=== PATIENT | female | born 1995 | race Caucasian/White ===

== ENCOUNTER 2019-10-14 10:44 | Observation (INO) | payer OTHER ==
--- NOTE | 2019-10-14 12:29 | XRAY ---
Indication: growth. 2-dimensional OB ultrasound performed. Comparison: September 06, 2019. Again there is a single viable intrauterine in cephalic presentation. heart rate 14 BPM. Visualized stomach and bladder appear unremarkable. Again posterior placenta without abruption/previa. BPD measures 9.06 cm corresponding to 36 weeks 5 days. HC measures 32.40 cm corresponding to 36 weeks 5 days. AC measures 30.62 cm corresponding to 34 weeks 4 days. FL measures 6.90 cm corresponding to 35 weeks 3 days. Estimated weight 5 lbs. 13 oz., +/-14 ounces. Approximately 54 percentile. VEDA is 14.9 cm. Impression: Again single viable intrauterine with mean gestational age 35 weeks 6 days. There has been progression of with fetus now measuring 6 days larger, previously 9 days larger. No new/acute findings.
[2019-10-14 14:15] VITALS: BP 103/60; PULSE 83; O2SAT 96
== END 2019-10-14 12:44 | disposition home or self-care (01) ==
LOC: OB 10:44
PROVIDERS: ADMIT Family Medicine; ATTEND Family Medicine
DX: Z34.83 Encounter for supervision of other normal pregnancy, third trimester (principal)
CPT/HCPCS: 59025; 76816; G0378

== ENCOUNTER 2019-11-03 12:40 | Observation (INO) | payer OTHER ==
--- NOTE | 2019-11-03 13:51 | XRAY ---
Indication: Decreased movement. Ultrasound biophysical profile study was performed. Comparison: None Single intrauterine currently in cephalic presentation with heart rate 135 BPM. Four-quadrant VEDA is 18.8 cm. 2 points given for breathing, movements, tone, and qualitative amniotic fluid volume. Impression: Total biophysical profile score is 8 out of 8.
== END 2019-11-03 14:35 | disposition home or self-care (01) ==
LOC: OB 12:40
PROVIDERS: ADMIT Family Medicine; ATTEND Family Medicine
DX: Z34.83 Encounter for supervision of other normal pregnancy, third trimester (principal)
CPT/HCPCS: 59025; 76819; G0378

== ENCOUNTER 2019-11-08 14:16 | Inpatient (IN) | payer OTHER ==
[2019-11-08] MEDS ORDERED: XYLOCAINE 1% HCL 20 ML MDV IJ PRN (14:27)
[2019-11-08] MEDS ORDERED: PITOCIN 30 UNITS/ LR 500 ML 30 UNITS/500 ML IV.SOLN. IV SCH (14:30)
[2019-11-08] MEDS ORDERED: Sodium Chloride 100ML MINI-BAG PLUS 100 ML IV ONE ×3 (14:40→22:17)
[2019-11-08] MEDS ORDERED: OMNIPEN 2 GM*** 2 G in Sodium Chloride 100ML MINI-BAG PLUS 100 ML IV ONE (15:00)
[2019-11-08] MEDS: Lactated Ringers 1,000 ML IV SCH ×2 (15:22→19:21)
[2019-11-08 15:33] LABS: Absolute Neutrophil Ct (ANC) 9.09 (1.4-6.9); BASOPHIL % 0.1 % (0.0-0.4); Basophil (Absolute #) 0.01 (0-0.4); Eosinophil (Absolute #) 0.12 (0-0.5); Hematocrit 39.5 % (35-47); Hemoglobin 13.1 gm/dl (12.0-16.0); Lymphocyte (Absolute #) 2.35 (1.0-4.6); Lymphocytes % 19.2 % (24.0-44.0); Mean Cell Volume 93.4 fl (78-100); Mean Corpuscular Hgb Concent. 33.2 g/dl (32-36); Mean Platelet Volume 10.9 fl (7.5-11.0); Monocyte (Absolute #) 0.66 (0.0-1.3); Monocytes % 5.4 % (0.0-12.0); Neutrophil % 74.3 % (36.0-66.0); Platelet Count 190 K/mm3 (150-450); Red Blood Count 4.23 M/mm3 (4.1-5.4); Red Cell Distribution Width 13.8 % (11.5-14.0); White Blood Count 12.2 K/mm3 (4.0-10.5)
[2019-11-08 16:34] LABS: Amphetamine,Urine NEGATIVE (NEGATIVE); Barbiturate,Urine NEGATIVE (NEGATIVE); Benzodiazepine,Urine NEGATIVE (NEGATIVE); Cocaine,Urine NEGATIVE (NEGATIVE); Methadone,Urine NEGATIVE (NEGATIVE); Opiate,Urine NEGATIVE (NEGATIVE); PCP,Urine NEGATIVE (NEGATIVE); THC,Urine NEGATIVE (NEGATIVE)
[2019-11-08] MEDS ORDERED: Lactated Ringers 1,000 ML IV ONE (16:58)
[2019-11-08] MEDS ORDERED: OB EPIDURAL NAROPIN/SUFENTANIL IN NACL EPIDURAL PRN (16:58)
[2019-11-08] MEDS ORDERED: Ephedrine Sulfate 50 MG/ML IV PRN (16:58)
[2019-11-08] MEDS ORDERED: SUBLIMAZE 100 MCG/2 ML ONE (17:39)
[2019-11-08] MEDS ORDERED: SUBLIMAZE 100 MCG/2 ML IV ONE (18:00)
[2019-11-08] MEDS ORDERED: OMNIPEN 1 GM ONE ×2 (18:58→22:17)
[2019-11-08] MEDS: OMNIPEN 1 GM*** 1 GM in Sodium Chloride 100ML MINI-BAG PLUS 100 ML IV SCH ×2 (19:21→23:10)
[2019-11-08] MEDS ORDERED: XYLOCAINE 2%/Epi 1:200000 20ML VIAL MPF ONE (23:41)
[2019-11-09] MEDS ORDERED: LANSINOH 40 GM TOP PRN (01:11)
[2019-11-09] MEDS ORDERED: Mylicon 80MG PO PRN (01:11)
[2019-11-09] MEDS ORDERED: TUCKS TP PRN (01:11)
[2019-11-09] MEDS ORDERED: Dermoplast Spray TP PRN (01:11)
[2019-11-09] MEDS ORDERED: NORCO 5/325 MG PO PRN (01:11)
[2019-11-09] MEDS ORDERED: CORTISONE 1% CREAM TP PRN (01:11)
[2019-11-09] MEDS: Lactated Ringers 1,000 ML IV SCH ×2 (04:54→10:33)
[2019-11-09] MEDS: MOTRIN 400 MG PO PRN (08:07)
[2019-11-09] MEDS ORDERED: SOD CITRATE-CITRIC ACID SOLN PO ONE (08:14)
[2019-11-09] MEDS ORDERED: Pepcid 20 MG VIAL IV SCH (08:15)
[2019-11-09] MEDS ORDERED: Reglan 10 MG/2 ML IV SCH (08:15)
[2019-11-09 08:34] LABS: Absolute Neutrophil Ct (ANC) 10.79 (1.4-6.9); BASOPHIL % 0.1 % (0.0-0.4); Basophil (Absolute #) 0.01 (0-0.4); Eosinophil % 0.1 % (0.00-5.0); Eosinophil (Absolute #) 0.02 (0-0.5); Hematocrit 33.8 % (35-47); Hemoglobin 11.2 gm/dl (12.0-16.0); Lymphocyte (Absolute #) 2.24 (1.0-4.6); Lymphocytes % 16.4 % (24.0-44.0); Mean Cell Volume 94.7 fl (78-100); Mean Corpuscular Hemoglobin 31.4 pg (26-32); Mean Corpuscular Hgb Concent. 33.1 g/dl (32-36); Mean Platelet Volume 10.9 fl (7.5-11.0); Monocytes % 4.4 % (0.0-12.0); Platelet Count 172 K/mm3 (150-450); Red Blood Count 3.57 M/mm3 (4.1-5.4); Red Cell Distribution Width 13.4 % (11.5-14.0); White Blood Count 13.7 K/mm3 (4.0-10.5)
[2019-11-09] MEDS ORDERED: SUBLIMAZE 100 MCG/2 ML ONE (08:35)
[2019-11-09] MEDS ORDERED: Astramorph-Pf 5 MG/10 ML ONE (08:48)
[2019-11-09] MEDS ORDERED: Sensorcaine 0.25% 10 ML ONE (09:10)
[2019-11-09] MEDS ORDERED: Lactated Ringers 1,000 ML IV ONE (09:10)
[2019-11-09] MEDS ORDERED: Zofran 4 MG/2 ML VIAL ONE (09:39)
--- NOTE | 2019-11-09 10:40 | OP ---
SURGERY DATE/TIME: 11/09/2019 0802 PREOPERATIVE DIAGNOSES: 1) Desires permanent sterilization. 2) Multigravity. POSTOPERATIVE DIAGNOSES: 1) Desires permanent sterilization. 2) Multigravity. PROCEDURES: bilateral tubal ligation. SURGEON: Galo Medina M.D. ANESTHESIA: Spinal by Maurice Nicolas CRNA. ESTIMATED BLOOD LOSS: Minimal. SPECIMENS: Bilateral fallopian tube segments. INDICATIONS: After informed, written consent which included the risk of bleeding, infection and damage to surrounding structures. I also counseled her on the accepted failure rate of 1:300. The patient voiced understanding of these instructions. She elected to proceed DESCRIPTION OF PROCEDURE: She was taken to the OR where she underwent spinal anesthesia and was prepped and draped in usual sterile fashion after a Wise was placed. 0.25% Marcaine was used to infiltrate the area of infraumbilical incision and a horizontal incision was made by knife and carried down through the subcutaneous fat with scissors to the level of the fascia which was grasped by clamps and carefully excised and opened extending in horizontal. First, the right fallopian tube was identified and grasped with [place] and carried down to the fimbrial end to verify structure. Cautery was then used to make a window in the mesosalpinx and the proximal and distal tube segments were ligated with chromic tie and the interceding tube segment was then dissected free. The free end of the tube was cauterized with electrocautery. There were no complications. The fallopian tube segment was handed off for pathology specimen. The exact same protocol was followed on the left side with no complications. The fascia was closed with 0 Vicryl in running fashion with good closure and good hemostasis achieved. The subcutaneous fat was closed with 2-0 Vicryl interrupted suture x2 to close the space. Finally the skin layer was closed with 4-0 undyed Vicryl in running subcuticular fashion. Steri-Strips and occlusive dressing were placed over the incision and the patient was transferred to recovery in good condition.
[2019-11-09 11:06] LABS: Appearance CLEAR (CLEAR); Bilirubin NEGATIVE (NEGATIVE); Blood LARGE Ery/ul (0-5); Epithelial Cells RARE /HPF (FEW); Glucose NEGATIVE (NEGATIVE); Ketones NEGATIVE (NEGATIVE); Leukocyte Esterase NEGATIVE (NEGATIVE); Mucus SLIGHT /HPF (NEGATIVE); Nitrite NEGATIVE (NEGATIVE); Protein,Urine Dip NEGATIVE (Negative); Specific Gravity 1.009 (1.005-1.025); Urobilinogen NEGATIVE mg/dL (0-1)
[2019-11-09 11:19] LABS: Bacteria NONE SEEN /HPF (NEGATIVE); RBC >101 /HPF (0-2)
[2019-11-09] MEDS ORDERED: Zofran 4 MG/2 ML VIAL IV PRN (16:49)
[2019-11-09] MEDS ORDERED: HOLD NARCOTIC ANALGESICS AND SEDATIVES X24 HR MC PRN (16:51)
[2019-11-09] MEDS ORDERED: Narcan 0.4 MG/ML IV PRN (16:51)
[2019-11-09] MEDS ORDERED: PERCOCET TABLET 5/325MG PO PRN (16:51)
[2019-11-09] MEDS ORDERED: DEMEROL 50 MG IV PRN (16:51)
[2019-11-09] MEDS ORDERED: Nubain 10 MG/ML IV PRN (16:51)
[2019-11-09] MEDS ORDERED: CLARITIN 10 MG PO PRN (16:51)
[2019-11-09] MEDS ORDERED: Sodium Chloride 0.9% 10 ML FLUSH Syringe IJ PRN (16:51)
[2019-11-09] MEDS ORDERED: BENADRYL 50 MG/ML IV PRN (16:51)
[2019-11-09] MEDS ORDERED: MORPHINE SULFATE 2 MG INJ IV PRN (16:51)
[2019-11-09] MEDS: FERREX 150 PO SCH (17:13)
[2019-11-09] MEDS: Colace 100 MG PO SCH ×2 (17:13→22:57)
[2019-11-09] MEDS: TYLENOL EXTRA STRENGTH 500 MG PO PRN (18:33)
[2019-11-10] MEDS: TYLENOL EXTRA STRENGTH 500 MG PO PRN ×2 (00:34→07:05)
--- NOTE | 2019-11-10 08:43 | PCM.DS ---
Discharge Summary Date of Admission: 11/08/19 16:55 Admitting Physician: NANI BOWERS Consults: Consults on Case 11/09/19 08:14 Notify Anesthesia Provider ROUTINE 11/09/19 16:52 Notify Anesthesia Provider PRN Primary Care Provider: NANI BOWERS Allergies Allergies Sulfa (Sulfonamide Antibiotics) Adverse Reaction (Unknown, Verified 11/08/19 17:34) Pt states her mother almost twice from Sulfa so she does not want to take a chance Hospital Summary - Hospital Course Hospital Course: patient had by Dr Bowers on 11/07, no complications. had tubal on 11/08 with no complications. she is tolerating po, has mild lochia and ambulatory POD #1 and requesting to be discharged to home today. pain is controlled - Vitals & Intake/Output Vital Signs: Vital Signs Temperature 97.8 F 11/09/19 21:15 Pulse Rate 70 11/10/19 02:30 Respiratory Rate 20 11/10/19 02:30 Blood Pressure 98/62 11/10/19 02:30 O2 Sat by Pulse Oximetry 98 11/09/19 14:00 Intake & Output: Intake & Output 11/07/19 11/08/19 11/09/19 11/10/19 11:59 11:59 11:59 11:59 Intake Total 4465 1780 Output Total 700 350 Balance 3765 1430 Weight 90.718 kg - Lab Result Diagrams: 11/09/19 08:20 Lab Results-Last 24 Hrs: Lab Results-Last 24 Hours 11/09/19 Range/Units 09:03 Urine Color YELLOW (YELLOW) Urine Appearance CLEAR (CLEAR) Urine pH 7.0 (5-6) Ur Specific [place] 1.009 (1.005-1.025) Urine Protein NEGATIVE (Negative) Urine Ketones NEGATIVE (NEGATIVE) Urine Blood LARGE (0-5) [place]/ul Urine Nitrite NEGATIVE (NEGATIVE) Urine Bilirubin NEGATIVE (NEGATIVE) Urine Urobilinogen NEGATIVE (0-1) mg/dL Ur Leukocyte Esterase NEGATIVE (NEGATIVE) Urine WBC (Auto) 6-10 (0-5) /HPF Urine RBC (Auto) >101 (0-2) /HPF U Epithel Cells (Auto) RARE (FEW) /HPF Urine Bacteria (Auto) NONE SEEN (NEGATIVE) /HPF Uric Acid Cryst (Auto) 2-5 (NEGATIVE) /HPF Urine Mucus (Auto) SLIGHT (NEGATIVE) /HPF Urine Glucose NEGATIVE (NEGATIVE) mg/dL Discharge Exam General Appearance: no apparent distress, alert Respiratory Exam: normal breath sounds, lungs clear, No respiratory distress Cardiovascular Exam: regular rate/rhythm, normal heart sounds Gastrointestinal/Abdomen Exam: soft, other (infraumbilical incision c/d/i), No tenderness, No mass Extremity Exam: normal inspection, normal range of motion Final Diagnosis/Problem List - Final Discharge Diagnosis/Problem (1) Vaginal delivery Current Visit: Yes Status: Acute Code(s): O80 - ENCOUNTER FOR FULL-TERM UNCOMPLICATED DELIVERY (2) Encounter for tubal ligation Current Visit: Yes Status: Acute Code(s): Z30.2 - ENCOUNTER FOR STERILIZATION - Discharge Disposition: Home, Self-Care Condition: Stable Prescriptions: New Hydrocodone/APAP 5-325 Tab^^^ [[place] 5-325 Tablet^^^] 1 tab PO Q6HPRN PRN #28 tablet MDD 6 PRN Reason: Pain Continue Vits W-Ca,Fe,FA(<1Mg) [] 1 each PO DAILY Follow up with: NANI BOWERS [Primary Care Provider] - 1 Week
[2019-11-10] MEDS: FERREX 150 PO SCH (09:16)
[2019-11-10] MEDS: Colace 100 MG PO SCH (09:17)
[2019-11-10] MEDS: MOTRIN 400 MG PO PRN (09:17)
[2019-11-10 14:11] VITALS: O2SAT 99
[2019-11-10 14:21] VITALS: BP 103/60; PULSE 72
[2019-11-10] MEDS ORDERED: NORCO 5/325 MG PO PRN (17:00)
== END 2019-11-10 14:19 | disposition home or self-care (01) | DRG 798 ==
LOC: OB 14:16 → OBSVTOIN 16:55 → OB 16:55
PROVIDERS: ADMIT Family Medicine; ATTEND Family Medicine
PROC: 10E0XZZ Delivery of Products of Conception, External Approach (ICD-10-PCS; principal; 2019-11-09)
PROC: 0U570ZZ Destruction of Bilateral Fallopian Tubes, Open Approach (ICD-10-PCS; 2019-11-09)
DX: O71.4 Obstetric high vaginal laceration alone (principal); Z37.0 Single live birth; O69.81X0 Labor and delivery complicated by cord around neck, without compression, not applicable or unspecified; Z3A.39 39 weeks gestation of pregnancy; Z30.2 Encounter for sterilization
CPT/HCPCS: 36415; 80307; 81001; 85025; 87086; 88302; 94799; G0378; J0290; J2274; J2405; J2795; J3010; A9270-GY

== ENCOUNTER 2019-11-26 19:37 | Emergency (ER) | payer OTHER ==
[2019-11-26] MEDS ORDERED: TORAdol 30 mg Injection IV ONE (20:30)
[2019-11-26] MEDS ORDERED: Sodium Chloride 0.9% 1000 ML 1,000 ML IV STA (20:30)
[2019-11-26] MEDS ORDERED: Zofran 4 MG/2 ML VIAL IV ONE (20:30)
--- NOTE | 2019-11-26 20:30 | ERPHSYRPT ---
- History of Present Illness Time Seen by Provider: 11/26/19 20:25 Source: patient Exam Limitations: no limitations Patient Subjective Stated Complaint: pt states that she had a baby 2 weeks ago, pt states that she had a epidural that went bad, pt states that today the pain was unbearable, pt states that she has abdomen pain also, pt thought it was gas pain at first but it has not went away, pt states that when she takes deep breaths it makes her back hurt worse Triage Nursing Assessment: pt ambulated into the er. pt is axo x3. pt c/o back pain. c/o 11/27 pain to back. hx of epidural 2 weeks prior. no deformity present. tenderness with palpation to back. clear lung sounds in all lobes. vitals wnl Physician History: pt has abd pain and back pain after epidural 2 weeks ago and no specific tenderness on exam or spine or erythema; no trauma; no fever, discussed risk and benfit of CT and pt wishes to proceed , Timing/Duration: day(s) Method of Injury: unknown Quality: radiating, sharp, stabbing Back Pain Location: T-spine, lumbar spine Severity of Pain-Max: moderate Severity of Pain-Current: moderate Modifying Factors: Improves With: movement Associated Symptoms: other (abd pain ), No fever, No chills Previous symptoms: same symptoms as today, recently seen Allergies/Adverse Reactions: Sulfa (Sulfonamide Antibiotics) Adverse Reaction (Unknown, Verified 11/26/19 20:12) Pt states her mother almost twice from Sulf[place] so she does not want to take a chance Hx Tetanus, Diphtheria Vaccination/Date Given: Yes Hx Influenza Vaccination/Date Given: Yes Hx Pneumococcal Vaccination/Date Given: No Travel Risk - International Travel Have you traveled outside of the country in past 3 weeks: No - Coronavirus Screening Are you exhibiting any of the following symptoms?: Yes - Review of Systems Constitutional: No Fever, No Chills Eyes: No Symptoms Ears, Nose, & Throat: No Symptoms Respiratory: No Cough, No Dyspnea Cardiac: No Chest Pain, No Edema, No Syncope Abdominal/Gastrointestinal: Abdominal Pain, Nausea, No Vomiting, No Diarrhea Genitourinary Symptoms: No Dysuria Musculoskeletal: Back Pain, No Neck Pain Skin: No Rash Neurological: No Dizziness, No Focal Weakness, No Sensory Changes Psychological: No Symptoms Endocrine: No Symptoms All Other Systems: Reviewed and Negative - Past Medical History Pertinent Past Medical History: Yes Female Reproductive Disorders: Other (recnet vag delivery with tubal ligation) - Past Surgical History Past Surgical History: Yes Neuro Surgical History: No Pertinent History Cardiac: No Pertinent History Respiratory: No Pertinent History Gastrointestinal: No Pertinent History Genitourinary: No Pertinent History Musculoskeletal: No Pertinent History Female Surgical History: Tubal Ligation - Social History Smoking Status: Former smoker Exposure to second hand smoke: No Drug Use: none Patient Lives Alone: No - Female History Hx Now: No - Nursing Vital Signs Nursing Vital Signs: Initial Vital Signs Temperature 97.9 F 11/26/19 19:53 Pulse Rate 65 11/26/19 19:53 Respiratory Rate 16 11/26/19 19:53 Blood Pressure 107/63 11/26/19 19:53 O2 Sat by Pulse Oximetry 100 11/26/19 19:53 Pain Scale Pain Intensity [Back] 8 Pain Intensity 8 - Physical Exam General Appearance: no apparent distress, alert Eye Exam: PERRL/EOMI, eyes nml inspection Neck Exam: normal inspection, non-tender, supple, full range of motion, No meningismus, No midline tenderness Respiratory Exam: normal breath sounds, lungs clear, No respiratory distress Cardiovascular Exam: regular rate/rhythm, normal heart sounds Gastrointestinal Exam: soft, No tenderness, No mass Pelvic Exam: deferred Rectal Exam: deferred Extremity Exam: normal inspection, normal range of motion, No calf tenderness, No pedal edema Neurologic Exam: alert, oriented x 3, cooperative, gallery host II-XII nml as tested, normal mood/affect, nml station & gait, sensation nml, No motor deficits Skin Exam: normal color, warm, dry, No rash SpO2: 100 - Course Nursing assessment & vital signs reviewed: Yes Ordered Tests: Active Orders 24 hr Category Date Time Status AMYLASE Stat Lab 11/26/19 20:30 Ordered CBC W DIFF Stat Lab 11/26/19 20:30 Ordered CMP Stat Lab 11/26/19 20:30 Ordered D-DIMER QUANTITATIVE Stat Lab 11/26/19 20:34 Ordered HCG, Quantitative (Inhouse) Stat Lab 11/26/19 20:31 Ordered LIPASE Stat Lab 11/26/19 20:30 Ordered Lactic Acid Stat Lab 11/26/19 20:30 Ordered UA W/RFX UR CULTURE Stat Lab 11/26/19 20:31 Uncollected Medication Summary Generic Name Dose Route Start Last Admin Trade Name Mitchelq PRN Reason Stop Dose Admin Sodium Chloride 1,000 mls @ 999 mls/hr 11/26/19 20:30 Sodium Chloride 0.9% 1000 Ml IV 11/26/19 21:30 .Q1H1M STA Discontinued Medications Generic Name Dose Route Start Last Admin Trade Name Mitchelq PRN Reason Stop Dose Admin Ketorolac Tromethamine 30 mg 11/26/19 20:30 Toradol 30 Mg Injection IV 11/26/19 20:31 STAT ONE Ondansetron HCl 4 mg 11/26/19 20:30 Zofran 4 Mg/2 Ml Vial IV 11/26/19 20:31 STAT ONE - Progress Progress: improved Progress Note: 11/26/19 21:18 THe pt called the nurse and stated her pain had all resolved and she did not wish the CT or lab at this time( changed her mind) . re-examined pt and exam remains normal with nontender spine and abd exams and tubal ligation wound also without erythema or tenderness and no erythema on abd or spine at epidural site. she reconfirms no fever or chills . discussed again the risks and benefits of CT and pt has changed her mind and prefers to decline CT as well as the labs and IV I did explain that we have not determined the cause for her symptoms and that serious pathology could be evolving undetected , including PE or epidural abscess, or abd process, and she declines furhter w/u in ER or admission at this time and has the capacity to make this choice. She is advised to return if symptoms recur or she changes her mind or has any other concerns. 11/26/19 21:30 Counseled pt/family regarding: lab results, diagnosis, need for follow-up, rad results - Departure Departure Disposition: Home Clinical Impression: Abdominal pain of unknown etiology, back pain unknown cause Condition: Good Critical Care Time: No Referrals: NANI ZHOU [Primary Care Provider] - Instructions: Low Back Pain (DC), Acute Abdomen (Belly Pain), Adult (DC) Additional Instructions: we have not yet determined a cause for your symptoms and although this could have been related to our reflux , additional problems could be developing that could be serious so we recommend followup with your Drs for furhter workup and to return if any furhter symptoms develop. You can try some over the counter pepcid or similar also to see if those help or gaviscon. You may have some risk for complications such as an epidural abscess or blood clot to the lungs although we did not find outward signs for these at this tme. return meantime if any furhter concerns or symptoms.
[2019-11-26 21:37] VITALS: BP 105/68; PULSE 70
[2019-11-26 21:40] VITALS: O2SAT 100
== END 2019-11-26 21:47 | disposition home or self-care (01) ==
LOC: ED 19:37
DX: R10.9 Unspecified abdominal pain (principal)
CPT/HCPCS: 99283

== ENCOUNTER 2019-12-18 05:42 | Observation (INO) | payer OTHER ==
[2019-12-18] MEDS ORDERED: Zofran 4 MG/2 ML VIAL IV ONE (06:35)
[2019-12-18] MEDS ORDERED: GI COCKTAIL 45 ML (Maalox/Lidocaine) PO ONE (06:35)
[2019-12-18] MEDS ORDERED: Pepcid 20 MG VIAL IV ONE ×2 (06:35→07:00)
[2019-12-18] MEDS ORDERED: Sodium Chloride 0.9% 1000 ML 1,000 ML IV STA (06:35)
[2019-12-18] MEDS ORDERED: MORPHINE SULFATE 4 MG INJ IV ONE (06:35)
[2019-12-18 06:52] LABS: Absolute Neutrophil Ct (ANC) 10.42 (1.4-6.9); BASOPHIL % 0.1 % (0.0-0.4); Basophil (Absolute #) 0.01 (0-0.4); Eosinophil % 0.2 % (0.00-5.0); Eosinophil (Absolute #) 0.02 (0-0.5); Hematocrit 41.1 % (35-47); Hemoglobin 13.7 gm/dl (12.0-16.0); Lymphocyte (Absolute #) 1.56 (1.0-4.6); Lymphocytes % 12.6 % (24.0-44.0); Mean Cell Volume 91.1 fl (78-100); Mean Corpuscular Hemoglobin 30.4 pg (26-32); Mean Corpuscular Hgb Concent. 33.3 g/dl (32-36); Monocyte (Absolute #) 0.42 (0.0-1.3); Monocytes % 3.4 % (0.0-12.0); Neutrophil % 83.7 % (36.0-66.0); Platelet Count 216 K/mm3 (150-450); Red Blood Count 4.51 M/mm3 (4.1-5.4); Red Cell Distribution Width 12.3 % (11.5-14.0); White Blood Count 12.4 K/mm3 (4.0-10.5)
--- NOTE | 2019-12-18 06:56 | ERPHSYRPT ---
- History of Present Illness Historian: patient Exam Limitations: no limitations Patient Subjective Stated Complaint: pt c/o rt upper quad pain radiating to lower back Triage Nursing Assessment: pt c/o RUQ abd pain, pain radiates to lower back across the entire back. Lungs clear, heart tones reg, abd soft with hypoactive bs x4 quad, nontender on palpation. Pt nauseated, vomited x1, diarrhea off and on today. Pt states, "pain seems to be worse after eating meat". Timing/Duration: yesterday, sudden, worse Activities at Onset: rest, sleep Quality: sharpness Abdominal Pain Onset Location: RUQ Pain Radiation: back Severity of Pain-Max: severe Severity of Pain-Current: moderate Modifying Factors: Improves With: eating Associated Symptoms: back, nausea, vomiting Previous symptoms: same symptoms as today Hx Tetanus, Diphtheria Vaccination/Date Given: Yes Hx Influenza Vaccination/Date Given: No Hx Pneumococcal Vaccination/Date Given: No Immunizations Up to Date: Yes <JEAN CLAUDE VALENCIA - Last Filed: 12/18/19 07:12> <LIZA HICKEY - Last Filed: 12/18/19 10:22> - History of Present Illness Time Seen by Provider: 12/18/19 05:53 Physician History: 24 years old female presented in the ER with chief complaint of right upper quad rant pain sudden onset around 11 PM last night with progressive worsening, moderate to severe intensity, sharp in nature, radiating to the back, associated with nausea and one episode of nonprojectile, nonbilious vomiting this morning. Patient report having similar symptoms after eating fatty food. Denies any fever or chills. No diarrhea. (JEAN CLAUDE VALENCIA) Allergies/Adverse Reactions: Sulfa (Sulfonamide Antibiotics) Adverse Reaction (Unknown, Verified 12/18/19 06:05) Pt states her mother almost twice from Sulfa so she does not want to take a chance Home Medications: Hydrocodone/APAP 5-325 Tab^^^ [[place] 5-325 Tablet^^^] 1 tab PO Q4H PRN PRN 12/18/19 [History] Travel Risk - International Travel Have you traveled outside of the country in past 3 weeks: No - Coronavirus Screening Are you exhibiting any of the following symptoms?: No Symptoms: Vomiting/Diarrhea Close contact with a COVID-19 positive Pt in past 14-21 Days: No <JEAN CLAUDE VALENCIA Last Filed: 12/18/19 07:12> - Review of Systems Constitutional: No Symptoms Eyes: No Symptoms Ears, Nose, & Throat: No Symptoms Respiratory: No Symptoms Cardiac: No Symptoms Abdominal/Gastrointestinal: Abdominal Pain, Nausea, Vomiting Genitourinary Symptoms: No Symptoms Musculoskeletal: Back Pain Skin: No Symptoms Neurological: No Symptoms Psychological: No Symptoms Endocrine: No Symptoms Hematologic/Lymphatic: No Symptoms Immunological/Allergic: No Symptoms <JEAN CLAUDE VALENCIA Last Filed: 12/18/19 07:12> - Past Medical History Pertinent Past Medical History: Yes Neurological History: No Pertinent History ENT History: No Pertinent History Cardiac History: No Pertinent History Respiratory History: Asthma Endocrine Medical History: No Pertinent History Musculoskeletal History: Fractures GI Medical History: GERD History: No Pertinent History Psycho-Social History: Anxiety Female Reproductive Disorders: No Pertinent History Other Medical History: fx bilat arms, nose - Past Surgical History Past Surgical History: Yes Neuro Surgical History: No Pertinent History Cardiac: No Pertinent History Respiratory: No Pertinent History Gastrointestinal: No Pertinent History Genitourinary: No Pertinent History Musculoskeletal: No Pertinent History Female Surgical History: Tubal Ligation - Social History Smoking Status: Former smoker Exposure to second hand smoke: No Drug Use: none Patient Lives Alone: No - Female History Hx Now: No (UNKN) <JEAN CLAUDE VALENCIA Last Filed: 12/18/19 07:12> - Physical Exam General Appearance: no apparent distress Eye Exam: PERRL/EOMI Ears, Nose, Throat Exam: normal ENT inspection, pharynx normal Neck Exam: normal inspection, non-tender, supple Respiratory Exam: normal breath sounds, lungs clear Cardiovascular Exam: regular rate/rhythm, normal heart sounds Gastrointestinal/Abdomen Exam: soft, tenderness (Right upper quadrant. Positive Alba sign) Back Exam: normal inspection, normal range of motion, No CVA tenderness Extremity Exam: normal inspection, normal range of motion Neurologic Exam: alert, oriented x 3, cooperative Skin Exam: normal color SpO2 Interpretation: normal SpO2: 97 O2 Delivery: Room Air <JEAN CLAUDE VALENCIA Last Filed: 12/18/19 07:12> - Nursing Vital Signs Nursing Vital Signs: Initial Vital Signs Temperature 98.0 F 12/18/19 05:53 Pulse Rate 72 12/18/19 05:53 Respiratory Rate 16 12/18/19 05:53 Blood Pressure 123/71 12/18/19 05:53 O2 Sat by Pulse Oximetry 97 12/18/19 05:53 Pain Scale Pain Intensity 2 - CT Exams Abdomen/Pelvis CT Interpretation: Tele-radiologist Report (negative) - Radiology Ultrasound Exam Gallbladder Ultrasound: gall bladder stones <EDELMIRA,LIZA - Last Filed: 12/18/19 10:22> Ordered Tests: Active Orders 24 hr Category Date Time Status IV Insertion STAT Care 12/18/19 06:35 Active NPO (ED) STAT Care 12/18/19 06:35 Active ABDOMEN AND PELVIS W CONTRAST [CT] Stat Exams 12/18/19 06:34 Taken GALLBLADDER [US] Stat Exams 12/18/19 08:30 Taken CBC W DIFF Stat Lab 12/18/19 06:40 Completed CMP Stat Lab 12/18/19 06:40 Completed HCG,QUALITATIVE URINE Stat Lab 12/18/19 06:35 Completed LIPASE Stat Lab 12/18/19 06:40 Completed UA W/RFX UR CULTURE Stat Lab 12/18/19 06:34 Completed Transfer Order Routine Transfer 12/18/19 Ordered Medication Summary Discontinued Medications Generic Name Dose Route Start Last Admin Trade Name Freq PRN Reason Stop Dose Admin Al Hydrox/Mg Hydrox/Simethicone Confirm 12/18/19 07:01 Maalox Es 30 Ml Unit Dose Administered 12/18/19 07:02 Dose 30 ml .ROUTE .STK-MED ONE Famotidine 20 mg 12/18/19 06:35 12/18/19 07:14 Pepcid 20 Mg Vial IV 12/18/19 06:36 20 mg STAT ONE Administration Famotidine Confirm 12/18/19 07:00 Pepcid 20 Mg Vial Administered 12/18/19 07:01 Dose 20 mg IV .STK-MED ONE Sodium Chloride 1,000 mls @ 999 mls/hr 12/18/19 06:35 12/18/19 08:22 Sodium Chloride 0.9% 1000 Ml IV 12/18/19 07:35 Infused .Q1H1M STA Infusion Sodium Chloride Confirm 12/18/19 07:01 Sodium Chloride 0.9% 1000 Ml Administered 12/18/19 07:02 Dose 1,000 mls @ ud .ROUTE .STK-MED ONE Lidocaine HCl Confirm 12/18/19 07:01 Xylocaine Hcl Viscous * Administered 12/18/19 07:02 Dose 15 ml .ROUTE .STK-MED ONE Magnesium Hydroxide 45 ml 12/18/19 06:35 12/18/19 07:14 Gi Cocktail 45 Ml (Maalox/Lidocaine) PO 12/18/19 06:36 45 ml STAT ONE Administration Morphine Sulfate 4 mg 12/18/19 06:35 12/18/19 07:14 Morphine Sulfate 4 Mg Inj IV 12/18/19 06:36 4 mg STAT ONE Administration Morphine Sulfate Confirm 12/18/19 07:01 Morphine Sulfate 4 Mg Inj Administered 12/18/19 07:02 Dose 4 mg .ROUTE .STK-MED ONE Ondansetron HCl 4 mg 12/18/19 06:35 12/18/19 07:14 Zofran 4 Mg/2 Ml Vial IV 12/18/19 06:36 4 mg STAT ONE Administration Ondansetron HCl Confirm 12/18/19 07:00 Zofran 4 Mg/2 Ml Vial Administered 12/18/19 07:01 Dose 4 mg .ROUTE .STK-MED ONE Lab/Rad Data: Laboratory Result Diagrams 12/18/19 06:40 12/18/19 06:40 Laboratory Results 12/18/19 12/18/19 12/18/19 Range/Units 06:40 06:40 06:35 WBC 12.4 H (4.0-10.5) K/mm3 RBC 4.51 (4.1-5.4) M/mm3 Hgb 13.7 (12.0-16.0) gm/dl Hct 41.1 (35-47) % MCV 91.1 (78-100) fl MCH 30.4 (26-32) pg MCHC 33.3 (32-36) g/dl RDW 12.3 (11.5-14.0) % Plt Count 216 (150-450) K/mm3 MPV 11.0 (7.5-11.0) fl Gran % 83.7 H (36.0-66.0) % Eos # (Auto) 0.02 (0-0.5) Absolute Lymphs (auto) 1.56 (1.0-4.6) Absolute Monos (auto) 0.42 (0.0-1.3) Lymphocytes % 12.6 L (24.0-44.0) % Monocytes % 3.4 (0.0-12.0) % Eosinophils % 0.2 (0.00-5.0) % Basophils % 0.1 (0.0-0.4) % Absolute Granulocytes 10.42 H (1.4-6.9) Basophils # 0.01 (0-0.4) Sodium 138 (137-145) mmol/L Potassium 3.7 (3.5-5.1) mmol/L Chloride 100 (98-107) mmol/L Carbon Dioxide 30 (22-30) mmol/L Anion Gap 11.9 (5-15) MEQ/L BUN 14 (7-17) mg/dL Creatinine 0.61 (0.52-1.04) mg/dL Estimated GFR > 60.0 ML/MIN Glucose 148 H (74-106) mg/dL Calcium 9.9 (8.4-10.2) mg/dL Total Bilirubin 1.10 (0.2-1.3) mg/dL AST 207 H (14-36) U/L ALT 138 H (0-35) U/L Alkaline Phosphatase 162 H (38-126) U/L Serum Total Protein 7.7 (6.3-8.2) g/dL Albumin 4.5 (3.5-5.0) g/dL Lipase 102 (23-300) U/L Urine Color (YELLOW) Urine Appearance (CLEAR) Urine pH (5-6) Ur Specific [place] (1.005-1.025) Urine Protein (Negative) Urine Ketones (NEGATIVE) Urine Blood (0-5) Deacon/ul Urine Nitrite (NEGATIVE) Urine Bilirubin (NEGATIVE) Urine Urobilinogen (0-1) mg/dL Ur Leukocyte Esterase (NEGATIVE) Urine WBC (Auto) (0-5) /HPF Urine RBC (Auto) (0-2) /HPF U Epithel Cells (Auto) (FEW) /HPF Urine Bacteria (Auto) (NEGATIVE) /HPF Amorphous Crystals (NEGATIVE) /HPF Urine Mucus (Auto) (NEGATIVE) /HPF Urine Culture Reflexed (NO) Urine Glucose (NEGATIVE) mg/dL Urine HCG, Qual NEGATIVE (Negative) 08/30/20 Range/Units 06:34 WBC (4.0-10.5) K/mm3 RBC (4.1-5.4) M/mm3 Hgb (12.0-16.0) gm/dl Hct (35-47) % MCV (78-100) fl MCH (26-32) pg MCHC (32-36) g/dl RDW (11.5-14.0) % Plt Count (150-450) K/mm3 MPV (7.5-11.0) fl Gran % (36.0-66.0) % Eos # (Auto) (0-0.5) Absolute Lymphs (auto) (1.0-4.6) Absolute Monos (auto) (0.0-1.3) Lymphocytes % (24.0-44.0) % Monocytes % (0.0-12.0) % Eosinophils % (0.00-5.0) % Basophils % (0.0-0.4) % Absolute Granulocytes (1.4-6.9) Basophils # (0-0.4) Sodium (137-145) mmol/L Potassium (3.5-5.1) mmol/L Chloride (98-107) mmol/L Carbon Dioxide (22-30) mmol/L Anion Gap (5-15) MEQ/L BUN (7-17) mg/dL Creatinine (0.52-1.04) mg/dL Estimated GFR ML/MIN Glucose (74-106) mg/dL Calcium (8.4-10.2) mg/dL Total Bilirubin (0.2-1.3) mg/dL AST (14-36) U/L ALT (0-35) U/L Alkaline Phosphatase (38-126) U/L Serum Total Protein (6.3-8.2) g/dL Albumin (3.5-5.0) g/dL Lipase (23-300) U/L Urine Color DARK YELLOW (YELLOW) Urine Appearance CLOUDY (CLEAR) Urine pH 9.0 (5-6) Ur Specific [place] 1.025 (1.005-1.025) Urine Protein 100 (Negative) Urine Ketones NEGATIVE (NEGATIVE) Urine Blood NEGATIVE (0-5) Deacon/ul Urine Nitrite NEGATIVE (NEGATIVE) Urine Bilirubin NEGATIVE (NEGATIVE) Urine Urobilinogen 2 (0-1) mg/dL Ur Leukocyte Esterase NEGATIVE (NEGATIVE) Urine WBC (Auto) NONE SEEN (0-5) /HPF Urine RBC (Auto) NONE (0-2) /HPF U Epithel Cells (Auto) RARE (FEW) /HPF Urine Bacteria (Auto) NONE (NEGATIVE) /HPF Amorphous Crystals MODERATE (NEGATIVE) /HPF Urine Mucus (Auto) SLIGHT (NEGATIVE) /HPF Urine Culture Reflexed NO (NO) Urine Glucose NEGATIVE (NEGATIVE) mg/dL Urine HCG, Qual (Negative) - Progress Progress: unchanged, pain not gone completely Discussed with DrSowmya: Jen Donovan M.Lynch Will see patient in: hospital (observation) Counseled pt/family regarding: lab results, diagnosis, need for follow-up, rad results <LIZA HICKEY - Last Filed: 12/18/19 10:22> <JEAN CLAUDE VALENCIA - Last Filed: 12/18/19 07:12> - Departure Departure Disposition: Observation Critical Care Time: Yes Critical Care Time(excluding separately billable procedures): Critical 30-74 mins <LIZA HICKEY - Last Filed: 12/18/19 10:22> - Departure Clinical Impression: Cholecystitis Gall stone Qualifiers: Cholecystitis presence: with cholecystitis Cholecystitis acuity: acute Biliary obstruction: without biliary obstruction Qualified Code(s): K80.00 - Calculus of gallbladder with acute cholecystitis without obstruction Condition: Fair Referrals: NANI ZHOU [Primary Care Provider] - Instructions: Gallstones (DC)
[2019-12-18] MEDS ORDERED: Zofran 4 MG/2 ML VIAL ONE (07:00)
[2019-12-18] MEDS ORDERED: MAALOX ES 30 ML UNIT DOSE ONE (07:01)
[2019-12-18] MEDS ORDERED: Sodium Chloride 0.9% 1000 ML 1,000 ML ONE (07:01)
[2019-12-18] MEDS ORDERED: MORPHINE SULFATE 4 MG INJ ONE (07:01)
[2019-12-18] MEDS ORDERED: XYLOCAINE HCl Viscous ONE (07:01)
[2019-12-18 07:07] LABS: ALBUMIN 4.5 g/dL (3.5-5.0); ALKALINE PHOSPHATASE 162 U/L (38-126); ANION GAP 11.9 MEQ/L (5-15); BLOOD UREA NITROGEN 14 mg/dL (7-17); CHLORIDE 100 mmol/L (98-107); Calcium 9.9 mg/dL (8.4-10.2); Carbon Dioxide 30 mmol/L (22-30); Creatinine 1 0.61 mg/dL (0.52-1.04); EST GLOMERULAR FILTRATION RATE > 60.0 ML/MIN; Glucose 148 mg/dL (74-106); LIPASE 102 U/L (23-300); Potassium 3.7 mmol/L (3.5-5.1); SGOT/AST 207 U/L (14-36); SGPT/ALT 138 U/L (0-35); SODIUM 138 mmol/L (137-145); Total Protein 7.7 g/dL (6.3-8.2)
[2019-12-18 07:19] LABS: Amourphous Crystal MODERATE /HPF (NEGATIVE); Appearance CLOUDY (CLEAR); Bilirubin NEGATIVE (NEGATIVE); Blood NEGATIVE Ery/ul (0-5); Epithelial Cells RARE /HPF (FEW); Glucose NEGATIVE (NEGATIVE); Ketones NEGATIVE (NEGATIVE); Leukocyte Esterase NEGATIVE (NEGATIVE); Mucus SLIGHT /HPF (NEGATIVE); Nitrite NEGATIVE (NEGATIVE); Protein,Urine Dip 100 (Negative); Specific Gravity 1.025 (1.005-1.025); Urobilinogen 2 mg/dL (0-1)
[2019-12-18 07:21] LABS: WBC NONE SEEN /HPF (0-5)
[2019-12-18] MEDS ORDERED: MORPHINE SULFATE 2 MG INJ IV PRN (11:13)
[2019-12-18] MEDS: Sodium Chloride 0.9% 1000 ML 1,000 ML IV SCH ×2 (11:54→22:27)
[2019-12-18] MEDS: PROTONIX 40 MG IV IV SCH (11:56)
[2019-12-18] MEDS: ROCEPHIN 1 Gm-D5w 50 ml Bag** 1 G/50 ML IVPB IV SCH (13:41)
[2019-12-18] MEDS ORDERED: Zofran 4 MG/2 ML VIAL IV PRN (14:23)
--- NOTE | 2019-12-18 20:15 | XRAY ---
Indication: Right upper quadrant pain and vomiting. Multiple contiguous axial images obtained through the abdomen and pelvis using 80 cc Isovue 370 contrast only. Comparison: None Lung bases demonstrates minimal dependent atelectasis. No infiltrate or effusion. Heart is not enlarged. Stomach is distended with food/fluid. Noncontrasted stomach and bowel loops appear nonobstructed. Normal appendix. No free fluid/air. Splenomegaly measuring 13.5 cm. Remaining liver, gallbladder, pancreas, spleen, adrenal glands, kidneys, ureters, bladder, uterus, and aorta appear unremarkable. No pathologic retroperitoneal lymphadenopathy. Osseous structures intact. No ventral or inguinal hernias. Impression: Splenomegaly. Remaining CT abdomen/pelvis with contrast exam is negative
--- NOTE | 2019-12-18 20:17 | XRAY ---
Indication: Right upper quadrant pain. Two-dimensional gallbladder sonogram performed. Comparison: None Gallbladder normally distended with tiny gallstones/gravel in the dependent portion. No gallbladder wall thickening or pericholecystic fluid. Common bile duct measures 8.2 mm. No intrahepatic biliary distention. Remaining visualized liver, pancreas, and right kidney sonographically unremarkable. Right kidney measures 10.4 cm in length. No studies. Impression: Tiny gallstones/gravel and borderline prominent common bile duct. Negative for acute cholecystitis. Comment: Preliminary report was given.
[2019-12-19] MEDS ORDERED: TYLENOL 325 MG ONE (02:35)
[2019-12-19 05:09] LABS: Absolute Neutrophil Ct (ANC) 3.94 (1.4-6.9); BASOPHIL % 0.3 % (0.0-0.4); Basophil (Absolute #) 0.02 (0-0.4); Eosinophil % 2.1 % (0.00-5.0); Eosinophil (Absolute #) 0.15 (0-0.5); Hematocrit 37.7 % (35-47); Hemoglobin 12.2 gm/dl (12.0-16.0); Lymphocyte (Absolute #) 2.69 (1.0-4.6); Lymphocytes % 37.2 % (24.0-44.0); Mean Cell Volume 92.9 fl (78-100); Mean Corpuscular Hgb Concent. 32.4 g/dl (32-36); Mean Platelet Volume 10.6 fl (7.5-11.0); Monocyte (Absolute #) 0.44 (0.0-1.3); Monocytes % 6.1 % (0.0-12.0); Neutrophil % 54.3 % (36.0-66.0); Platelet Count 182 K/mm3 (150-450); Red Blood Count 4.06 M/mm3 (4.1-5.4); Red Cell Distribution Width 12.5 % (11.5-14.0); White Blood Count 7.2 K/mm3 (4.0-10.5)
[2019-12-19 05:26] LABS: ALBUMIN 3.3 g/dL (3.5-5.0); ALKALINE PHOSPHATASE 110 U/L (38-126); ANION GAP 7.2 MEQ/L (5-15); BLOOD UREA NITROGEN 10 mg/dL (7-17); CHLORIDE 108 mmol/L (98-107); Calcium 8.6 mg/dL (8.4-10.2); Carbon Dioxide 26 mmol/L (22-30); Creatinine 1 0.67 mg/dL (0.52-1.04); EST GLOMERULAR FILTRATION RATE > 60.0 ML/MIN; Glucose 96 mg/dL (74-106); Potassium 3.8 mmol/L (3.5-5.1); SGOT/AST 61 U/L (14-36); SGPT/ALT 108 U/L (0-35); SODIUM 137 mmol/L (137-145)
[2019-12-19] MEDS: Sodium Chloride 0.9% 1000 ML 1,000 ML IV SCH (08:43)
[2019-12-19] MEDS ORDERED: MEFOXIN 2 GM PREMIX** 2 GM/50 ML ML IV SCH (09:00)
[2019-12-19] MEDS ORDERED: Lactated Ringers 1,000 ML IV SCH (09:00)
[2019-12-19] MEDS: PROTONIX 40 MG IV IV SCH (09:14)
[2019-12-19] MEDS: ROCEPHIN 1 Gm-D5w 50 ml Bag** 1 G/50 ML IVPB IV SCH (09:15)
[2019-12-19] MEDS ORDERED: Zemuron 100 MG/10 ML ONE (15:48)
[2019-12-19] MEDS ORDERED: Quelicin Fliptop 200 MG/10 ML ONE (15:48)
[2019-12-19] MEDS ORDERED: Versed 2 MG/2 ML Injection ONE (15:48)
[2019-12-19] MEDS ORDERED: DIPRIVAN 200 MG/20 ML IV ONE (15:48)
[2019-12-19] MEDS ORDERED: SUBLIMAZE 250 MCG/5 ML ONE (15:48)
[2019-12-19] MEDS ORDERED: BRIDION 200MG/2ML IV ONE (15:56)
[2019-12-19] MEDS ORDERED: Zofran 4 MG/2 ML VIAL ONE ×2 (16:53→18:05)
[2019-12-19] MEDS ORDERED: Sensorcaine 0.25% 10 ML ONE (17:29)
[2019-12-19] MEDS ORDERED: SUBLIMAZE 100 MCG/2 ML ONE (17:32)
[2019-12-19] MEDS ORDERED: TORAdol 30 mg Injection ONE (17:32)
[2019-12-19 18:41] VITALS: BP 138/62; PULSE 53; O2SAT 97
[2019-12-19] MEDS ORDERED: NORCO 5/325 MG PO PRN (19:03)
[2019-12-19] MEDS ORDERED: MORPHINE SULFATE 4 MG INJ IV PRN (19:04)
--- NOTE | 2019-12-19 19:54 | PCM.SSS ---
History of Present Illness - Chief Complaint Chief Complaint: choleycystitis History of Present Illness: Late entry for 12/19/19 at 08:20 am. is a 24 year old female pt of mine from [facility] who came to the ER complaining of RUQ pain. It started early yesterday morning and was 10/10. She had noticed the pain periodically, after she ate meat, for the past several months. Denies fever. Her CT abd/pelvis was nonacute. U/S gallbladder with tiny gallstones and distended bile duct. She is scheduled for surgery this afternoon (cholecystectomy). Currently she is NPO and denies any pain. - Review of Systems Abdominal/Gastrointestinal: Abdominal Pain All Other Systems: Reviewed and Negative Medications & Allergies Home Medications: Home Medication List No Reportable Medications [No Reported Medications] 12/18/19 [History Confirmed 12/18/19] Allergies/Adverse Reactions: Allergies Allergy/AdvReac Type Severity Reaction Status Date / Time Sulfa (Sulfonamide AdvReac Unknown Verified 12/18/19 06:05 Antibiotics) - Past Medical History Past Medical History: Yes Neurological History: No Pertinent History ENT History: No Pertinent History Cardiac History: No Pertinent History Respiratory History: Asthma Endocrine Medical History: No Pertinent History Musculoskelatal History: Fractures GI Medical History: GERD, Gallbladder Disease History: No Pertinent History Pyscho-Social History: Anxiety Reproductive Disorders: No Pertinent History Comment: fx bilat arms, nose; mono - Female History Are you now?: No - Past Surgical History Past Surgical History: Yes Neuro Surgical History: No Pertinent History Cardiac History: No Pertinent History Respiratory Surgery: No Pertinent History GI Surgical History: No Pertinent History Genitourinary Surgical Hx: No Pertinent History Musculskeletal Surgical Hx: No Pertinent History Female Surgical History: Tubal Ligation - Social History Smoking Status: Never smoker Exposure to second hand smoke: No Alcohol: Rarely Drug Use: none - Physical Exam Vital Signs: Vital Signs - 24 hr Temp Pulse Resp BP BP Pulse Ox 12/19/19 18:30 53 L 16 138/62 97 12/19/19 18:15 98.6 F 56 L 16 170/70 95 12/19/19 16:00 98.2 F 52 L 17 113/55 99 12/19/19 12:33 97.9 F 62 18 108/55 98 12/19/19 12:00 97.9 F 62 18 108/55 98 12/19/19 08:00 18 12/19/19 07:28 97.8 F 59 L 18 103/59 98 12/19/19 04:00 97.6 F 53 L 18 100/55 98 12/19/19 00:00 98.4 F 58 L 20 123/60 99 12/18/19 20:00 98.2 F 66 18 123/60 98 General Appearance: no apparent distress, alert Neurologic Exam: oriented x 3, cooperative, normal mood/affect Eye Exam: eyes nml inspection Ears, Nose, Throat Exam: moist mucous membranes Neck Exam: normal inspection, non-tender, supple, No mass Respiratory Exam: normal breath sounds, lungs clear, No crackles/rales, No rhonchi, No wheezing Cardiovascular Exam: regular rate/rhythm, normal heart sounds, No murmur Gastrointestinal/Abdomen Exam: soft, normal bowel sounds, No tenderness, No distention, No mass, No guarding, No rebound Back Exam: normal inspection, No CVA tenderness Extremity Exam: normal inspection, No swelling, No tenderness Skin Exam: normal color, warm, dry, No rash Wound Assessment: Skin/Wound Assessment Wound/Incision Assessment Start: 12/18/19 20:00 Text: Status: Active Freq: Q4H Protocol: Document 12/19/19 18:24 DS (Rec: 12/19/19 18:26 DS [id number]) Wound/Incision Assessment Anterior Abdomen Wound Assessment New Finding Wound Type Incision Dressing Status Drainage circled Drainage Amount Minimal Drainage Description Serosanguineous Drainage Odor None/Absent Primary Dressing Bandaid Comment 4 puncture sites on abd covered with bandaids. Upper bandaid has area marked from OR. Other 3 bandaids c/d/i. Wound Photo Photo Taken No Results - Labs Lab/Micro Results: Lab Results-Last 24 Hours 12/19/19 12/19/19 Range/Units 04:40 04:40 WBC 7.2 (4.0-10.5) K/mm3 RBC 4.06 L (4.1-5.4) M/mm3 Hgb 12.2 (12.0-16.0) gm/dl Hct 37.7 (35-47) % MCV 92.9 (78-100) fl MCH 30.0 (26-32) pg MCHC 32.4 (32-36) g/dl RDW 12.5 (11.5-14.0) % Plt Count 182 (150-450) K/mm3 MPV 10.6 (7.5-11.0) fl Gran % 54.3 (36.0-66.0) % Eos # (Auto) 0.15 (0-0.5) Absolute Lymphs (auto) 2.69 (1.0-4.6) Absolute Monos (auto) 0.44 (0.0-1.3) Lymphocytes % 37.2 (24.0-44.0) % Monocytes % 6.1 (0.0-12.0) % Eosinophils % 2.1 (0.00-5.0) % Basophils % 0.3 (0.0-0.4) % Absolute Granulocytes 3.94 (1.4-6.9) Basophils # 0.02 (0-0.4) Sodium 137 (137-145) mmol/L Potassium 3.8 (3.5-5.1) mmol/L Chloride 108 H (98-107) mmol/L Carbon Dioxide 26 (22-30) mmol/L Anion Gap 7.2 (5-15) MEQ/L BUN 10 (7-17) mg/dL Creatinine 0.67 (0.52-1.04) mg/dL Estimated GFR > 60.0 ML/MIN Glucose 96 (74-106) mg/dL Calcium 8.6 (8.4-10.2) mg/dL Total Bilirubin 0.50 (0.2-1.3) mg/dL AST 61 H (14-36) U/L ALT 108 H (0-35) U/L Alkaline Phosphatase 110 (38-126) U/L Serum Total Protein 6.0 L (6.3-8.2) g/dL Albumin 3.3 L (3.5-5.0) g/dL - Radiology Impressions Radiology Exams & Impressions: Radiology Procedures Category Date Time Status ABDOMEN AND PELVIS W CONTRAST [CT] Stat Exams 12/18/19 06:34 Completed GALLBLADDER [US] Stat Exams 12/18/19 08:30 Completed Assessment/Plan (1) Gall stone Current Visit: Yes Status: Acute Qualifiers: Cholecystitis presence: with cholecystitis Cholecystitis acuity: acute Biliary obstruction: without biliary obstruction Qualified Code(s): K80.00 - Calculus of gallbladder with acute cholecystitis without obstruction Assessment & Plan: cholecystectomy today. once cleared by surgery she will discharge to home (likely this evening, barring complication). Code(s): K80.20 - CALCULUS OF GALLBLADDER W/O CHOLECYSTITIS W/O OBSTRUCTION Hospital Summary - Hospital Course Hospital Course: Pt is 24 yo female pt of mine who came in to ER with RUQ pain, found to have cholecystitis, and is scheduled for cholecystectomy. If her postoperative recovery is smooth, she may be able to d/c to home today. - Vitals & Intake/Output Vital Signs: Vital Signs Temperature 98.6 F 12/19/19 18:15 Pulse Rate 53 L 12/19/19 18:30 Respiratory Rate 16 12/19/19 18:30 Blood Pressure 138/62 12/19/19 18:30 O2 Sat by Pulse Oximetry 97 12/19/19 18:30 Intake & Output: Intake & Output 12/17/19 12/18/19 12/19/19 12/20/19 11:59 11:59 11:59 11:59 Intake Total 3391 892 Balance 3391 892 Weight 84.187 kg 84.8 kg 84.8 kg - Lab Result Diagrams: 12/19/19 04:40 12/19/19 04:40 Lab Results-Last 24 Hrs: Lab Results-Last 24 Hours 12/19/19 12/19/19 Range/Units 04:40 04:40 WBC 7.2 (4.0-10.5) K/mm3 RBC 4.06 L (4.1-5.4) M/mm3 Hgb 12.2 (12.0-16.0) gm/dl Hct 37.7 (35-47) % MCV 92.9 (78-100) fl MCH 30.0 (26-32) pg MCHC 32.4 (32-36) g/dl RDW 12.5 (11.5-14.0) % Plt Count 182 (150-450) K/mm3 MPV 10.6 (7.5-11.0) fl Gran % 54.3 (36.0-66.0) % Eos # (Auto) 0.15 (0-0.5) Absolute Lymphs (auto) 2.69 (1.0-4.6) Absolute Monos (auto) 0.44 (0.0-1.3) Lymphocytes % 37.2 (24.0-44.0) % Monocytes % 6.1 (0.0-12.0) % Eosinophils % 2.1 (0.00-5.0) % Basophils % 0.3 (0.0-0.4) % Absolute Granulocytes 3.94 (1.4-6.9) Basophils # 0.02 (0-0.4) Sodium 137 (137-145) mmol/L Potassium 3.8 (3.5-5.1) mmol/L Chloride 108 H (98-107) mmol/L Carbon Dioxide 26 (22-30) mmol/L Anion Gap 7.2 (5-15) MEQ/L BUN 10 (7-17) mg/dL Creatinine 0.67 (0.52-1.04) mg/dL Estimated GFR > 60.0 ML/MIN Glucose 96 (74-106) mg/dL Calcium 8.6 (8.4-10.2) mg/dL Total Bilirubin 0.50 (0.2-1.3) mg/dL AST 61 H (14-36) U/L ALT 108 H (0-35) U/L Alkaline Phosphatase 110 (38-126) U/L Serum Total Protein 6.0 L (6.3-8.2) g/dL Albumin 3.3 L (3.5-5.0) g/dL - Radiology Exams Ordered Rad Exams-Entire Visit: Radiology Procedures Category Date Time Status ABDOMEN AND PELVIS W CONTRAST [CT] Stat Exams 12/18/19 06:34 Completed GALLBLADDER [US] Stat Exams 12/18/19 08:30 Completed - Discharge Disposition: Home, Self-Care Condition: Fair Prescriptions: No Action No Reportable Medications [No Reported Medications] Follow up with: SANDY TAMAYO [COURTESY STAFF] - 1 Week (RTO IN 1 WEEK) NANI ZHOU [Primary Care Provider] - 1 Week
--- NOTE | 2019-12-20 08:26 | CONS ---
CONSULT DATE: 12/18/2019 REASON FOR CONSULT: Cholelithiasis. HISTORY: The patient has been . She had occasional symptoms during but did not know that she had stone disease. She is six weeks out. She presented with episode of right upper quadrant pain radiating to her back with nausea and vomiting. Admitted to the hospital. Ultrasound revealed small stones and sludge. She is seen and examined at the bedside. She is tender in the right upper quadrant. She has no palpable mass. She is not jaundiced. Her labs are okay. Her total bilirubin is okay. Smooth discussion concerning laparoscopic cholecystectomy. Dr. Alston is here on Thursday. IMPRESSION: Acute cholecystitis, cholelithiasis. PLAN: Laparoscopic cholecystectomy probably by Dr. Alston on Thursday.
--- NOTE | 2019-12-20 13:15 | CONS ---
CONSULT DATE: 12/19/2019 HISTORY: The patient is a 24 year old who apparently is a few weeks had lower quadrant pain to the back, had some nausea and vomited once. She had some loose stools off and on worse after eating. She apparently came in yesterday. I just found out about her late this afternoon. Apparently she is added to my schedule. OR did not know about the case for cholecystectomy as she has gallstones. PAST MEDICAL HISTORY: She denied any chronic illness. She had some reflux and anxiety in the past. PAST SURGICAL HISTORY: Fractured arm and nose in the past. Tubal in the past. She denied any abdominal surgery. MEDICATIONS: Hydrocodone. No other current medications. ALLERGIES: SULFA. FAMILY HISTORY: Negative in regards to this specific problem. SOCIAL HISTORY: Former smoking, denies alcohol abuse. LAB DATA AND TESTS: She had ultrasound show gallstones. CT had some splenomegaly but no significant acute findings on CT scan of pelvis. Bilirubin 0.5. Alkaline phosphatase 110. White count 7.2, hemoglobin 12.2. She had passed some stones because her bilirubin had been 1.1 earlier and down to 0.5 now. Lipase is normal. REVIEW OF SYSTEMS: Fourteen systems reviewed. She wears glasses. She recently . No chest pain or palpitations. Otherwise pertinent for GI complaints noted above. Other systems negative or noncontributory as above and per preadmission questionnaire. She had some anxiety and reflux in the past. PHYSICAL EXAMINATION: She is afebrile. Vital signs stable. GENERAL: No acute distress. HEENT: Sclera nonicteric. NECK: No JVD. CHEST: Equal excursion, nonlabored breathing. CVS: Regular rate and rhythm. ABDOMEN: Soft. No peritoneal signs. Mild tenderness right upper quadrant. EXTREMITIES: No edema or cyanosis. NEURO: Alert, moving extremities grossly symmetrically. No gross motor deficits noted. PSYCH: Appropriate mood and affect. IMPRESSION: Acute right upper quadrant pain. Ultrasound showing cholelithiasis and sludge, acute exacerbation of symptomatic cholelithiasis, biliary sludge, chronic cholecystitis. I feel she would benefit from cholecystectomy. Risks and benefits explained in detail including but not limited to bleeding or infection, risk of trocar injury or hernia, risk of bowel, bladder or blood vessel issues or injury, risk of bile leak, bile duct injury, retained stone or sludge possibly requiring further procedures either open or ERCP, general risk of anesthesia, deep venous thrombosis, pulmonary embolism, pneumonia, perioperative risk of aches, pains, bloating, constipation and/or loose stools possibly chronic in nature. General risk of anesthesia, deep venous thrombosis, pulmonary embolism, pneumonia but not limited to, possibility this procedure may not improve her symptoms she may need further work up and/or testing. She understands and agrees to the planned procedure, will proceed with laparoscopic cholecystectomy with possible open when OR time available. She also understands risk of kidney stone or sludge possibly requiring other procedures or ERCP.
--- NOTE | 2019-12-20 13:35 | OP ---
SURGERY DATE/TIME: 12/19/2019 1634 PREOPERATIVE DIAGNOSIS: Acute exacerbation of symptomatic cholelithiasis, chronic cholecystitis. POSTOPERATIVE DIAGNOSIS: Acute exacerbation of symptomatic cholelithiasis, chronic cholecystitis. PROCEDURE: Laparoscopic cholecystectomy. SURGEON: Dr. Farhan Alston. ANESTHESIA: General. ESTIMATED BLOOD LOSS: Minimal. INDICATIONS: As noted above. Risks and benefits explained in detail but not limited to and consent obtained. DESCRIPTION OF PROCEDURE AND FINDINGS: The patient was taken to the operating room. General anesthesia induced. Abdomen prepped and draped in the usual sterile fashion. After official time out and no disagreement with planned procedure, a transverse incision made at the supraumbilical area. Fascia grasped and pulled upward. Veress needle inserted and tested with saline. Pneumoperitoneum accomplished insufflating opening pressure of 0-15. A 5 mm bladeless port and camera inserted without difficulty in supraumbilical area, two - 5 mm right upper quadrant ports and 11 mm epigastric port. The gallbladder grasped. It had some fibrofatty, chronic inflammatory reaction. Dissection carried posterior, lateral to anterior fashion. Slowly and carefully the main cystic artery, cystic duct infundibular junction slowly and carefully well skeletonized until the critical view obtained both anteriorly and posteriorly. Once this was accomplished cystic duct clipped x3 and divided in usual fashion. There is a medium sized stone on infundibular side. There had not been any palpable ones in the small cystic duct itself. It was too small to safely do a cholangiogram. The main cystic artery is clipped x3 and divided in usual fashion. Gallbladder slowly and carefully dissected free from its dense attachment to liver bed. It was quite vascular requiring clipping additional oozing side branches off the cystic artery directly on the gallbladder wall as necessary. The gallbladder was slowly and carefully dissected free from its dense attachments to the liver bed staying directly on the gallbladder wall clipping additional oozing side branches off the cystic artery as necessary. This took some time but slowly and carefully accomplished. Just prior to releasing from final attachments to the anterior edge of the liver, the liver bed re-inspected. Clips noted in place in cystic duct and cystic artery stumps. There was one small, little ooze in the lateral aspect of the peritoneal surface of the liver. Small vein controlled with a clip. Good hemostasis noted. Gallbladder released from final attachments, pulled up in the epigastrium. The fascia is spread slightly allowing the gallbladder to be pulled free and passed off. Port is replaced. Copious amount of irrigation accomplished lateral to the liver and subhepatic space irrigating until clear. Liver bed re-inspected. Clips noted in place cystic duct and cystic artery stumps. No signs of any active bleeding or bile leakage. It was felt there is no benefit from drain placement. Fascial defect 01/28 site closed with puncture closure device with #1 Vicryl. Pneumoperitoneum decompressed. The wound irrigated out. Skin incision closed with 4-0 Vicryl. Steri-Strips and sterile dressing applied. 0.25% Marcaine local injected along the skin incision fascial defect at the beginning of the procedure. There were no immediate complications. There is no family available to discuss the findings with.
== END 2019-12-19 21:40 | disposition home or self-care (01) ==
LOC: ED 05:42 → MED SURG 11:06
PROVIDERS: ADMIT General Practice; ATTEND Family Medicine
DX: K80.10 Calculus of gallbladder with chronic cholecystitis without obstruction (principal); Z79.899 Other long term (current) drug therapy
CPT/HCPCS: 36415; 47562; 74177; 76705; 80053; 81001; 83690; 84703; 85025; 96360; 96374; 96375; 99291; G0378; 36000; 99285; J0330; J0696; J1885; J2250; J2270; J2405; J2704; J3010; A9270-GY